=== PATIENT | male | born 1955 | race Caucasian/White ===

== ENCOUNTER 2018-12-14 06:29 | Day surgery (SDC) | payer BC ==
--- NOTE | 2018-12-11 10:15 | PCM.SN ---
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
[~2018-12-14 06:29] MED LIST: Lactated Ringers 1,000 ML IV SCH; Sodium Chloride 0.9% 10 ML SDV IV PRN; Sodium Chloride 0.9% 10 ML Syringe FLUSH PRN; Sodium Chloride 0.9% 2.5 ML Syringe FLUSH PRN
[2018-12-14] MEDS ORDERED: Lidocaine 2% 5 ML SDV ONE (07:06)
[2018-12-14] MEDS ORDERED: Ondansetron 4 MG/2 ML SDV ONE ×2 (07:06→08:07)
[2018-12-14] MEDS ORDERED: Propofol 200 MG/20 ML SDV ONE (07:06)
[2018-12-14] MEDS ORDERED: Midazolam 1 MG/ML 2 ML SDV ONE (07:06)
[2018-12-14] MEDS ORDERED: fentaNYL 100 MCG/2 ML SDV ONE ×2 (07:06→07:10)
--- NOTE | 2018-12-14 07:06 | PCM.PREANE ---
Preanesthetic Assessment - Anesthesia/Transfusion/Family Hx Anesthesia History: No Prior Anesthesia Family History of Anesthesia Reaction: No Transfusion History: No Prior Transfusion(s) - Review of Systems General: No Symptoms Cardiovascular: No Symptoms Gastrointestinal: Constipation Other: Reports: Anxiety - Physical Assessment NPO Status Date: 12/13/18 Height: 6 ft Weight: 175.994 kg ASA Class: 4 Mental Status: Alert & Oriented x3 Airway Class: Mallampati = 2 Dentition: Reports: Normal Dentition ROM/Head Extension: Full Lungs: Clear to Auscultation, Normal Respiratory Effort Cardiovascular: Regular Rate, Regular Rhythm - Allergies Allergies/Adverse Reactions: Allergies Allergy/AdvReac Type Severity Reaction Status Date / Time procaine [From Novocain] Allergy "clammy" Verified 12/11/18 09:21 ramipril [From Altace] Allergy Cough Verified 09/07/16 03:01 - Blood Blood Available: No - Anesthesia Plan Pre-Op Medication Ordered: None - Acknowledgements Anesthesia Type Planned: General Anesthesia Pt an Appropriate Candidate for the Planned Anesthesia: Yes Alternatives and Risks of Anesthesia Discussed w Pt/Guardian: Yes Pt/Guardian Understands and Agrees with Anesthesia Plan: Yes Additional Comments: PMH: super morbid obesity, anx/dep, htn, DM2- on insulin, hx of gout, hx of thrombocytopenia- last plt count 131k in 2017 PLAN: GET PreAnesthesia Questionnaire HEENT History: Reports: Impaired Vision, Other (See Below) Other HEENT History: wears glasses Cardiovascular History: Reports: High Cholesterol, Hypertension Other Cardiovascular History: Patient reports taking medication for "preventative" Respiratory History: Reports: None Gastrointestinal History: Reports: Other (See Below) Other Gastrointestinal History: occasional heartburn Genitourinary History: Reports: None Musculoskeletal History: Reports: Fracture, Gout, Osteoarthritis Other Musculoskeletal History: hx fx nose, loki wrists, and left leg Neurological History: Reports: None Psychiatric History: Reports: Anxiety Endocrine/Metabolic History: Reports: Diabetes, Type II, Obesity/BMI 30+ Hematologic History: Reports: Other (See Below) Other Hematologic History: hx of thrombocytopenia Immunologic History: Reports: None Oncologic (Cancer) History: Reports: None Dermatologic History: Reports: None - Infectious Disease History Infectious Disease History: Reports: None - Past Surgical History Head Surgeries/Procedures: Reports: None HEENT Surgical History: Reports: None Respiratory Surgical History: Reports: None GI Surgical History: Reports: None Male Surgical History: Reports: None Endocrine Surgical History: Reports: None Neurological Surgical History: Reports: None Musculoskeletal Surgical History: Reports: None Oncologic Surgical History: Reports: None Dermatological Surgical History: Reports: None - SUBSTANCE USE Smoking Status *Q: Never Smoker Recreational Drug Use History: No - HOME MEDS Home Medications: Home Meds Aspirin 81 mg PO ASDIRECTED 09/07/16 [History] Cyanocobalamin/Folic Acid [Vitamin J26-Tevll Acid] 1,000 mcg PO BID 09/07/16 [ History] Insulin Aspart [Novolog] 1 injection SQ ASDIRECTED 09/07/16 [History] Tadalafil [Cialis] 20 mg PO ASDIRECTED PRN 09/07/16 [History] atorvaSTATin [Lipitor] 10 mg PO DAILY 09/07/16 [History] metFORMIN [Glucophage XR] 1,000 mg PO BID 09/07/16 [History] Citalopram Hydrobromide [Celexa] 20 mg PO DAILY 12/11/18 [History] Insulin Degludec [Tresiba] 1 injection SUBCUT ASDIRECTED 12/11/18 [History] Losartan Potassium 25 mg PO DAILY 12/11/18 [History] Naproxen Sodium [Aleve] 1 tab PO ASDIRECTED PRN 12/11/18 [History] Ozempic 1 mg SUBCUT WEEKLY 12/11/18 [History] - CURRENT (IN HOUSE) MEDS Current Meds: Current Medications Lactated Ringer's (Ringers, Lactated) 1,000 mls @ 125 mls/hr IV ASDIRECTED AMRANDO Sodium Chloride (Saline Flush) 10 ml FLUSH ASDIRECTED PRN PRN Reason: Keep Vein Open Sodium Chloride (Saline Flush) 2.5 ml FLUSH ASDIRECTED PRN PRN Reason: Keep Vein Open Sodium Chloride (Saline Flush) 10 ml FLUSH ASDIRECTED PRN PRN Reason: Keep Vein Open Sodium Chloride (Saline Flush) 2.5 ml FLUSH ASDIRECTED PRN PRN Reason: Keep Vein Open Sodium Chloride (Normal Saline) 10 ml IV ASDIRECTED PRN PRN Reason: IV Use
--- NOTE | 2018-12-14 08:31 | PCM.OPNOTE ---
- General Post-Op/Procedure Note Date of Surgery/Procedure: 12/14/18 Operative Procedure(s): Diagnostic colonoscopy Findings: Rectal polyp Pre Op Diagnosis: Constipation Post-Op Diagnosis: Rectal polyp Anesthesia Technique: MAC Primary Surgeon: Chantal Kang Condition: Good
--- NOTE | 2018-12-14 08:46 | PCM.POSTAN ---
POST ANESTHESIA ASSESSMENT - MENTAL STATUS Mental Status: Alert, Oriented - RESPIRATORY Respiratory Status: Respiratory Rate WNL, Airway Patent, O2 Saturation Stable - CARDIOVASCULAR CV Status: Pulse Rate WNL, Blood Pressure Stable - GASTROINTESTINAL GI Status: No Symptoms - PAIN Pain Score: 0 - POST OP HYDRATION Hydration Status: Adequate & Stable
--- NOTE | 2018-12-14 09:11 | PCM48HPAN ---
Post Anesthesia Note - EVALUATION WITHIN 48HRS OF ANESTHETIC Vital Signs in Normal Range: Yes Patient Participated in Evaluation: Yes Respiratory Function Stable: Yes Airway Patent: Yes Cardiovascular Function Stable: Yes Hydration Status Stable: Yes Pain Control Satisfactory: Yes Nausea and Vomiting Control Satisfactory: Yes Mental Status Recovered: Yes Resp Rate: 12
[2018-12-14 11:30] VITALS: BP 103/74
--- NOTE | 2018-12-14 14:58 | OR ---
SURGEON: CHANTAL KANG MD DATE OF PROCEDURE: 12/14/2018 PREOPERATIVE DIAGNOSIS: Constipation. POSTOPERATIVE DIAGNOSIS: Rectal polyp. PROCEDURE PERFORMED: Diagnostic colonoscopy. PRIMARY SURGEON: Endoscopist, Chantal Kang MD. ANESTHESIA: General endotracheal anesthesia. INSTRUMENT USED: Olympus colonoscope. EXTENT OF EXAM: To the cecum. PREPARATION: Good. LIMITATIONS: None. INDICATION FOR EXAMINATION: The patient is a 63-year-old male who presents with an acute change in his bowel habits. He has been more constipated than normal. We discussed the need for diagnostic colonoscopy as the patient never even had a screening colonoscopy. I explained the procedure, expected perioperative course, and risks including bleeding, infection, or damage to surrounding structures including perforation. After evaluation by Anesthesia, it was felt he would do better with general endotracheal anesthetic given his body habitus and the need for airway protection. The patient verbalized understanding and wishes to proceed. PROCEDURE IN DETAIL: The patient was brought into the endoscopy suite on the OR cart. He was left in supine position. A time-out was completed verifying the patient's name, age, date of , allergies, and procedure to be performed. General endotracheal anesthesia was induced. The patient was then placed in the left lateral decubitus position. A digital rectal exam was performed. This exam was within normal limits. A well-lubricated colonoscope was inserted in the rectum and advanced under direct visualization to the level of the cecum. The cecum was identified by both visual and anatomic landmarks. A photograph was taken of the cecal cap. However, I was unable to retroflex the scope within the cecum due to looping of the scope more proximally. The scope was then fully withdrawn while examining the color, texture, anatomy, and integrity of the mucosa from the cecum to the anal canal. The patient was found to have one small rectal polyp. This was removed using a cold biopsy forceps. The scope was then retroflexed within the rectum to allow visualization of the anal canal opening. This appeared normal and a photograph was taken. The scope was then straightened out and fully withdrawn. The cecum to anus time was 10 minutes. The patient tolerated the procedure well and was transferred to the PACU in stable condition. There, he was extubated. ENDOSCOPIC DIAGNOSIS: Rectal polyp. RECOMMENDATIONS: Follow up in clinic in 2 weeks. WAN BIGGS /[id number]
== END 2018-12-14 09:20 | disposition home or self-care (01) ==
LOC: MW.SDS 06:29
PROVIDERS: ATTEND Surgery
DX: D12.8 Benign neoplasm of rectum (principal); K59.00 Constipation, unspecified; I10 Essential (primary) hypertension; E11.9 Type 2 diabetes mellitus without complications; E78.00 Pure hypercholesterolemia, unspecified; F41.9 Anxiety disorder, unspecified; F32.9 Major depressive disorder, single episode, unspecified; M17.11 Unilateral primary osteoarthritis, right knee; E66.01 Morbid (severe) obesity due to excess calories; Z68.43 Body mass index [BMI] 50.0-59.9, adult; Z88.4 Allergy status to anesthetic agent; Z88.8 Allergy status to other drugs, medicaments and biological substances; Z79.4 Long term (current) use of insulin; Z79.82 Long term (current) use of aspirin; Z79.899 Other long term (current) drug therapy
CPT/HCPCS: 45380; J0330; J2001; J2250; J2405; J2704; J3010; J7120; 00811; 88305

== ENCOUNTER → 2024-02-17 | Day surgery (SDC) | payer MEDICARE, BC ==
[~2024-02-17] MED LIST changes: +Ketamine HCL/NACL, ISO-OSM 50 MG/5 ML Syringe ONE; -Sodium Chloride 0.9% 10 ML SDV IV PRN; -Sodium Chloride 0.9% 10 ML Syringe FLUSH PRN; -Sodium Chloride 0.9% 2.5 ML Syringe FLUSH PRN; +dexmedeTOMIDine HCl 200 MCG/2 ML SDV ONE; +propofoL 50 ML ONE
== END ==
LOC: MW.SDS 07:31
PROVIDERS: ATTEND Surgery
DX: Z12.11 Encounter for screening for malignant neoplasm of colon (principal); K63.5 Polyp of colon; I10 Essential (primary) hypertension; E11.9 Type 2 diabetes mellitus without complications; F41.9 Anxiety disorder, unspecified; Z79.82 Long term (current) use of aspirin; Z79.85 Long-term (current) use of injectable non-insulin antidiabetic drugs; Z79.4 Long term (current) use of insulin; Z79.84 Long term (current) use of oral hypoglycemic drugs; Z79.899 Other long term (current) drug therapy
CPT/HCPCS: 45380; 82947; J2704; J7120; 00811; J3490